=== PATIENT | female | born 1970 | race Caucasian/White ===

== ENCOUNTER 2023-02-18 09:23 | Day surgery (SDC) | payer OTHER ==
[2023-02-13 15:26] VITALS: BMI 31.1
[2023-02-13 15:55] LABS: Hematocrit 34.5 % (34.9-44.5); Mean Corpuscular HGB CONC 31.9 g/dL (32.0-36.0); Mean Corpuscular Hemoglobin 26.8 pg (27.0-33.0); Mean Corpuscular Volume 83.9 fl (81.6-98.3); Mean Platelet Volume 11.4 fl (7.4-10.4); Platelet Count 252 10x3/uL (150-450); RBC Distribution Width 14.1 % (11.5-14.5); Red Blood Cell (RBC) Count 4.11 10x6/uL (3.90-5.03); White Blood Cell (WBC) Count 5.8 10x3/uL (3.5-10.5)
[2023-02-13 16:06] LABS: BHCG - Serum Negative (NEGATIVE); Pregs Control Background? CLEAR/WHITE (CLR/WHITE); Pregs Control Bar Appear? YES (CONTROL BAR)
[2023-02-18] MEDS ORDERED: CeleCOXIB 100 MG CAP ONE (09:40)
[2023-02-18] MEDS ORDERED: Gabapentin 300 MG CAP ONE (09:41)
[2023-02-18] MEDS ORDERED: Famotidine/PF 20 mg/2ml Vial ONE (09:41)
[2023-02-18] MEDS ORDERED: Bupivacaine PF 0.5% 30 ML VIAL ONE (09:47)
[2023-02-18] MEDS ORDERED: Dexamethasone 20 MG/5 ML VIAL ONE (09:51)
[2023-02-18] MEDS ORDERED: Lidocaine 1% PF 5 ML VIAL ONE (09:51)
[2023-02-18] MEDS ORDERED: Fentanyl 250 MCG/5 ML VIAL ONE (09:51)
[2023-02-18] MEDS ORDERED: Midazolam HCl 2 mg/2 ml Vial ONE ×2 (09:51→10:19)
[2023-02-18] MEDS ORDERED: PROPOFOL 20 ML ONE (09:51)
[2023-02-18] MEDS ORDERED: Glycopyrrolate 0.2 MG/ML 5 ML SYRINGE ONE (09:51)
[2023-02-18] MEDS ORDERED: Rocuronium Bromide 10 MG/ML (10ML VIAL) ONE ×2 (09:51→12:03)
[2023-02-18] MEDS ORDERED: Ondansetron PF 4 MG/2 ML Vial ONE ×3 (09:51→11:47)
[2023-02-18] MEDS ORDERED: Scopolamine 1 mg/72 hour Patch ONE (10:20)
[2023-02-18] MEDS ORDERED: Acetaminophen 500 MG TAB ONE (10:21)
[2023-02-18] MEDS ORDERED: metroNIDAZOLE 500 MG (100 mL) BAG ONE (11:04)
[2023-02-18] MEDS ORDERED: CEFAZOLIN 2 GM VIAL ONE (11:04)
[2023-02-18] MEDS ORDERED: EPINEPHrine 1 MG/ML AMP ONE (11:37)
[2023-02-18] MEDS ORDERED: HYDROcodone/Acetaminophen 5/325 mg Tablet ONE (14:04)
== END 2023-02-18 15:15 | disposition home or self-care (01) ==
LOC: CSHSDC 09:23
PROVIDERS: ATTEND Obstetrics & Gynecology
PROC: 0UT94ZZ Resection of Uterus, Percutaneous Endoscopic Approach (ICD-10-PCS; principal; 2023-02-18)
PROC: 0UN64ZZ Release Left Fallopian Tube, Percutaneous Endoscopic Approach (ICD-10-PCS; principal; 2023-02-18)
DX: D25.9 Leiomyoma of uterus, unspecified (principal); F17.210 Nicotine dependence, cigarettes, uncomplicated; K21.9 Gastro-esophageal reflux disease without esophagitis; N93.8 Other specified abnormal uterine and vaginal bleeding; Z79.899 Other long term (current) drug therapy; Z98.890 Other specified postprocedural states
CPT/HCPCS: 84703; 85027; 86850; 86900; 86901; 88307; C9250; J0171; J1100; J2250; J2405; J2704; J3010; S0020; S0028